=== PATIENT | female | born 1990 | race African-American/Black ===

== ENCOUNTER 2018-05-17 15:41 | Emergency (ER) | payer MEDICAID ==
[~2018-05-17] VITALS: Ht 165.1 cm; Wt 57.2 kg
[2018-05-17 15:41] VITALS: BP 121/76
--- NOTE | 2018-05-17 16:14 | NUR ---
PT STATES THAT SHE IS ON HER SECOND DAY OF MENSTRUAL PERIOD. DENIES ANY CHANCE OF .
[2018-05-17] MEDS ORDERED: KETOROLAC TROMETHAMINE INJ 30 MG/ML VIAL ONE (16:15)
[2018-05-17] MEDS ORDERED: AMOX/CLAVULANATE 875 MG TABLET ONE (16:15)
[2018-05-17] MEDS ORDERED: KETOROLAC TROMETHAMINE INJ 60 MG/2 ML VIAL IM ONE (16:30)
[2018-05-17] MEDS ORDERED: AMOX/CLAVULANATE 875 MG TABLET PO ONE (16:30)
== END 2018-05-17 16:27 | disposition home or self-care (01) ==
LOC: ER 15:50
DX: K04.7 Periapical abscess without sinus (principal)
CPT/HCPCS: A4606; J1885; Z7610